=== PATIENT | male | born 1990 | race Caucasian/White ===

== ENCOUNTER 2020-04-25 11:25 | Emergency (ER) | payer OTHER, SELFPAY ==
--- NOTE | 2020-04-25 11:44 | ED.EAR ---
HPI - Ear Problem General Chief complaint: Ear Stated complaint: right ear pain Time Seen by Provider: 04/25/20 11:44 Source: patient and RN notes reviewed Mode of arrival: ambulatory Limitations: no limitations History of Present Illness HPI Narrative: 29-year-old male presents to the [facility] complaints of right ear issues for a couple of months. Patient reports nasty drainage from the right ear. He has not seek treatment before today due to insurance issues. Denies any fevers. No nausea vomiting or diarrhea. No dental issues. Related Data Allergies Allergy/AdvReac Type Severity Reaction Status Date / Time No Known Allergies Allergy Verified 04/25/20 11:44 Review of Systems Review of Systems: Narrative: CONSTITUTIONAL: Denies fever, chills, or sweats. EYES: Denies visual changes, redness, or discharge. ENT: Denies rhinorrhea, congestion, sore throat. Drainage from the right ear along with decreased hearing. CARDIOVASCULAR: Denies chest pain, palpitations, or edema. RESPIRATORY: Denies cough or dyspnea. GASTROINTESTINAL: Denies abdominal pain, nausea, vomiting, or diarrhea. GENITOURINARY: Denies dysuria or hematuria. SKIN: Denies rash or itching. MUSCULOSKELETAL: Denies back pain, joint pain, or myalgia. NEUROLOGIC: Denies headache, numbness, or weakness. PSYCHIATRIC: Denies anxiety or depression. All other systems reviewed are negative, except as documented in HPI. PMFSH Comments At the time of my signature, I reviewed and agree with the nursing past medical, surgical, social, and family history. There is no relevant family history pertinent to the patient complaint. Exam Narrative: Exam Narrative: GENERAL: This is a well-nourished, well-developed patient, in no apparent distress. HEAD: normocephalic, atraumatic. EYES: PERRL. Sclera clear/white. Vision is grossly intact. EARS: External ears normal.right TMs normal without perforation with large amount of cerumen. hearing grossly intact. Left TM partially visualized with pus both in front of and behind TM. NOSE: External nose normal with no obvious nasal discharge, nares without redness, no rhinorrhea. THROAT: Mucous membranes moist, posterior pharynx clear. NECK: Neck supple, non-tender without lymphadenopathy, masses or thyromegaly. CARDIOVASCULAR: Regular rate and rhythm without murmurs, gallops, or rubs. RESPIRATORY: Clear to auscultation. Breath sounds equal bilaterally. No wheezes, rales, or rhonchi. SKIN: warm, intact with no suspicious lesions or rash, good texture and turgor. NEURO: awake, alert, and oriented to person, place and time. There were no obvious focal neurologic abnormalities. EXTREMITIES: No joint tenderness, effusion, or edema noted. BACK: Nontender without deformity. No CVA tenderness. Course Vital Signs Vital signs: Vital Signs Temperature 97.0 F L 04/25/20 11:48 Pulse Rate 55 L 04/25/20 11:48 Respiratory Rate 16 04/25/20 11:48 Blood Pressure 143/57 H 04/25/20 11:48 Pulse Oximetry 100 04/25/20 11:48 Temperature 97.0 F L 04/25/20 11:48 Pulse Rate 55 L 04/25/20 11:48 Respiratory Rate 16 04/25/20 11:48 Blood Pressure 143/57 H 04/25/20 11:48 Pulse Oximetry 100 04/25/20 11:48 Reviewed Procedures Ear Wax Removal Left Ear: Ear Wax Removal Date: 04/25/20 Ear Wax Removal Time: 11:55 Results: Re-examined: some cerumen remains TM Examination: TM(s) intact, normal appearance Ear Canal Exam: atraumatic Patient Tolerated Procedure: well Complications: no problems Technique: ear canal curetted Medical Decision Making MDM Narrative Medical decision making narrative: Discharge instructions reviewed with patient, as well as provided in writing per nursing staff. The instructions also include specific and strict return/GO TO THE ER as well as f/u information. All questions have been answered, and the patient deny any further questions with discharge and discharge
[2020-04-25 11:48] VITALS: BP 143/57; PULSE 55; RESP 16; TEMP 36.1; O2SAT 100
--- NOTE | 2020-04-25 12:20 | PC.NURSE ---
Pt called and notified that prescription ear drops were changed by provider because of high co pay. Pt verbalized understanding and agreement.
== END 2020-04-25 12:06 | disposition home or self-care (01) ==
PROVIDERS: Emergency Provider Nurse Practitioner
DX: H60.91 Unspecified otitis externa, right ear (principal); H61.22 Impacted cerumen, left ear
CPT/HCPCS: 69210; 99213; G0463

== ENCOUNTER 2023-05-23 07:50 | Day surgery (SDC) | payer SELFPAY ==
[2023-05-23] VITALS (10 sets, daily range): BP systolic 142–163; BP diastolic 75–91; PULSE 56–105; RESP 10–18; TEMP 36.5–37.1; O2SAT 96–100
--- NOTE | ~2023-05-23 | CT_ITS ---
EXAMINATION: CT abdomen pelvis w con DATE: 05/23/2023 09:01 INDICATION: Right lower quadrant abdominal pain TECHNIQUE: Computed tomography (CT) of the abdomen and pelvis was performed with 100 mL Omnipaque-350 intravenous contrast. Automated exposure control and iterative reconstruction technique were employe d. The dose-length product was 397.43 mGy-cm. COMPARISON: None FINDINGS: Lung bases are clear. Heart size is normal. No pericardial or pleural effusion. Liver, gallbladder, s pleen, pancreas, bilateral adrenal glands and kidneys are normal. Mucosal enhancement and wall thicke hattie of the appendix which is dilated to 1.4 cm. There are a few likely obstructing appendicoliths in the proximal appendix with focal cecal wall thickening at the appendiceal orifice. There is also kei e surrounding periappendiceal inflammatory stranding in the entire constellation of findings consiste nt with acute appendicitis. Small amount of likely reactive free fluid in the deep pelvis. No abscess or free intraperitoneal gas. No bowel obstruction. Bladder is normal. No pathologically enlarged abd ominal or pelvic lymphadenopathy. Mild lumbar levocurvature with mild spondylosis. IMPRESSION: 1. Acute appendicitis. Dr. Strickland discussed these findings with Dr. Parisi at 9:10 AM. Reviewed, dictated and finalized at location A.
--- NOTE | 2023-05-23 08:06 | ED.ABDPAIN ---
HPI - Abdominal Pain General Chief Complaint: Abdominal Pain Stated Complaint: Right Lower ABD Pain Time Seen by Provider: 05/23/23 07:52 History of Present Illness HPI narrative: Patient is a 32-year-old male with no past medical history here today with nausea, vomiting, abdominal pain. He states around 12:00 p.m. yesterday afternoon he began having some periumbilical abdominal pain. The pain is progressed and moved to the right lower quadrant. He notes has been persistent, severe, associated with nausea, vomiting, decreased appetite. He additionally notes some burning with urination and decreased urinary output. He has not taken anything for the pain or nausea at home. Last p.o. intake was around 4:00 a.m. this morning when he tried to eat some strawberries but quickly through them back up. No prior abdominal surgeries. He does note that he had similar symptoms a few weeks ago which self-resolved after 12 hours and he was not seen for the pain at that time. Related Data Home Medications Medication Instructions Recorded Confirmed No Home Medications 05/23/23 05/23/23 Allergies Allergy/AdvReac Type Severity Reaction Status Date / Time No Known Allergies Allergy Verified 05/23/23 08:03 Review of Systems Review of Systems: All systems reviewed & are unremarkable except as noted in HPI and below Exam Narrative: GENERAL: Well-appearing, well-nourished, and in no acute distress. HEAD: Normocephalic, atraumatic. EYES: PERRLA and EOMI. ENT: Nares clear. Mucous membranes moist. NECK: Supple. CHEST: Clear to auscultation. No respiratory distress. HEART: Regular rate and rhythm. Normal peripheral pulses. ABDOMEN: Soft, right lower quadrant tenderness, no guarding, no CVA tenderness, nondistended. EXTREMITIES: Normal range of motion. No edema. SKIN: Warm, dry, no rash. NEURO: No focal deficits. Alert and oriented x3. PSYCH: Normal mood and affect. Course Course Emergency Course: Chart review performed. Patient here with right sided abdominal pain since yesterday with N/V, no diarrhea. Triage vitals show HTN, tachycardia. One prior visit in our system for cerumen impaction in 2020. Patient seen evaluated, nontoxic appearing. Presentation concerning for possible appendicitis, gastritis, gastroenteritis, less likely UTI, nephrolithiasis, pyelonephritis. Patient advised to remain NPO, IV fluids, morphine, Zofran ordered. Basic lab work ordered as well as UA. Will do CT abdomen pelvis to evaluate for appendicitis, obstructing ureteral stone. Patient agreeable. Received call from radiology that patient has acute appendicitis, trace free fluid in the pelvis with no free air or abscess appreciated. WBC of 17.3, remainder of lab work grossly normal. Patient re-evaluated and updated on results. Continues to remain NPO at this time. Confirms no prior abdominal surgeries, no blood thinner use. Continues to have pain. Additional morphine ordered. Zosyn ordered. Surgery paged. Spoke with Dr. Kelley who plans to take patient to OR this morning. Patient and family at bedside updated on all results and plan. All questions and concerns addressed. Vital Signs Vital signs: Vital Signs Temperature 97.7 F 05/23/23 07:52 Pulse Rate 105 H 05/23/23 07:52 Respiratory Rate 18 05/23/23 07:52 Blood Pressure 163/85 H 05/23/23 07:52 Pulse Oximetry 100 05/23/23 07:52 Oxygen Delivery Room Air 05/23/23 07:52 Temperature 97.7 F 05/23/23 07:52 Pulse Rate 105 H 05/23/23 07:52 Respiratory Rate 18 05/23/23 07:52 Blood Pressure 163/85 H 05/23/23 07:52 Pulse Oximetry 100 05/23/23 07:52 Oxygen Delivery Room Air 05/23/23 07:52 MDM - Abdominal Pain Lab Data 05/23/23 08:08 05/23/23 08:08 Labs: Lab Results 05/23/23 Range/Units 08:08 WBC 17.3 H (4.5-10.0) K/mm3 RBC 5.37 (4.6-6.20) M/mm3 Hgb 16.1 (14.0-18.0) g/dL Hct 48.2 (42.0-52.0) % MCV 89.8 (
[2023-05-23 08:16] LABS: Basophils Absolute Auto 0.1 K/mm3 (0.0-0.1); Basophils Percent Auto 0.5 % (0.2-1.2); Hematocrit 48.2 % (42.0-52.0); Hemoglobin 16.1 g/dL (14.0-18.0); Immature Granulocyte Absolute 0.12 K/mm3 (0.00-0.031); Immature Granulocyte Percent A 0.7 % (0-0.5); Lymphocytes Absolute Auto 1.76 K/mm3 (0.9-3.2); Lymphocytes Percent Auto 10.2 % (18.3-44.2); Mean Corpuscular HGB Conc 33.4 g/dl (32-36); Mean Corpuscular Volume 89.8 fl (80-100); Mean Platelet Volume 9.2 fl (7.4-10.4); Monocytes Percent Auto 5.8 % (2.6-8.5); Neutrophils Absolute Auto 14.3 K/mm3 (1.3-6.7); Neutrophils Percent Auto 82.8 % (45.5-73.1); Platelet Count Result 352 k/mm3 (150-375); Red Blood Count 5.37 M/mm3 (4.6-6.20); Red Cell Distribution Width 11.7 % (11.5-14.5); White Blood Count 17.3 K/mm3 (4.5-10.0)
[2023-05-23] MEDS: LACTATED RINGERS 1,000 ML 999 ML IV CONT (08:30)
[2023-05-23 08:31] LABS: Alanine Aminotransferase 31 U/L (6-50); Albumin Level 5.3 g/dL (3.5-5.1); Alkaline Phosphatase 103 U/L (38-126); Anion Gap 14 mmol/L (4-12); Aspartate Amino Transferase 29 U/L (17-59); Bilirubin,Total 1.4 mg/dL (0.2-1.3); Blood Urea Nitrogen 14 mg/dL (9-20); Carbon Dioxide 23 mmol/L (22-30); Chloride 101 mmol/L (98-107); Estimated CRCL calculation 105 ml/min; Estimated Glomerular Filt Rate > 60; Glucose 113 mg/dL (65-110); Lipase 194 U/L (23-300); Sodium 138 mmol/L (137-145)
[2023-05-23] MEDS: ONDANSETRON INJ 4 MG/2 ML VIAL IV PUSH ×2 (08:31→12:53)
[2023-05-23] MEDS: MORPHINE SULFATE (*CRX) 4 MG/ML INJ IV PUSH ×2 (08:31→09:30)
[2023-05-23 08:53] LABS: Appearance Urine Clear (Clear); Bacteria Urine None Seen /hpf; Bilirubin Urine Negative (Negative); Blood Urine Negative (Negative); Color Urine Dark Yellow (Yellow); Glucose Urine UA Negative (Negative); Ketones Urine 4+ mg/dL (Negative); Leukocyte Esterase Ur Negative LEU/UL (Negative); Mucus Urine Present /lpf; Nitrate Urine Negative (Negative); Protein Urine 1+ mg/dL (Negative); RBC Urine 0-2 /hpf (0-2); Squamous Epithelial Cell Urine None Seen /hpf (Few); WBC Urine 0-5 /hpf (0-3); pH Urine 5.5 (5.0-9.0)
[2023-05-23 08:54] LABS: Add Urine Microscopic? YES; Specific Grav Ur 1.034 (1.001-1.035)
[2023-05-23] MEDS: PIPERACILLIN/TAZ 4.5G/NS 100ML 4.5 GM/100 ML BAG IVPB (09:40)
[2023-05-23 09:41] LABS: INR 1.2; Prothrombin Time 15.2 Seconds (11.1-14.7)
[2023-05-23 09:42] LABS: Partial Thromboplastin Time 34.6 Seconds (22.3-36.8)
[2023-05-23 09:49] LABS: CRP 0.7 mg/dL (<1.0)
--- NOTE | 2023-05-23 10:13 | PM.IMHP ---
H&P: HPI History of Present Illness Date/Time: 05/23/23 10:13 Chief Complaint: Acute appendicitis Narrative: The patient is a 32-year-old male presenting to the emergency department complaining of a one-day history of right lower quadrant abdominal pain. The patient reports the pain initially started in the periumbilical area and has now localized to the right lower quadrant. The patient reports associated nausea and vomiting, decreased appetite. The patient denies previous episodes. Workup in the emergency department, including CT scan, is significant for acute uncomplicated appendicitis. Review of Systems Review of Systems: All systems reviewed & are unremarkable except as noted in HPI and below Meds Home Medications and Allergies Home Medications Medication Instructions Recorded Confirmed Type No Home Medications 05/23/23 05/23/23 History Allergies Allergy/AdvReac Type Severity Reaction Status Date / Time No Known Allergies Allergy Verified 05/23/23 08:03 Vital Signs Vital Signs - 24 hr 05/23/23 07:52 05/23/23 09:39 Temperature 36.5 C Pulse Rate 105 H 90 Respiratory Rate 18 18 Blood Pressure 163/85 H 148/88 H Pulse Oximetry 100 98 Oxygen Delivery Room Air Exam Const: General: cooperative, in distress mild and uncomfortable HENMT: Head: normal to inspection, normocephalic and atraumatic Eyes: General: appearance normal, both eyes and all related structures Neck: Neck: normal visual inspection, full ROM and no lymphadenopathy Resp: Auscultation: clear to auscultation bilaterally Cardio: Rate: regular rate Rhythm: regular rhythm GI: Inspection: normal to inspection and distended GI Palp: Yes abdominal tenderness, Yes Soft to palpation, Yes Tenderness to palpation present (GI), Yes Guarding due to palpation present (GI) and No Rigid due to palpation Skin: General skin exam: normal color and no rashes or lesions noted Neuro: General: patient oriented x3 and CN's II-XI intact bilaterally Extrem: General: normal to inspection and full ROM H&P: Results Labs Labs: Short CBC 05/23/23 Range/Units 08:08 WBC 17.3 H (4.5-10.0) K/mm3 Hgb 16.1 (14.0-18.0) g/dL Hct 48.2 (42.0-52.0) % Plt Count 352 (150-375) k/mm3 [facility] 05/23/23 08:08 Sodium 138 Potassium 4.0 Chloride 101 Carbon Dioxide 23 BUN 14 Creatinine 1.00 Glucose 113 H Calcium 10.0 Liver Function 05/23/23 Range/Units 08:08 Total Bilirubin 1.4 H (0.2-1.3) mg/dL AST 29 (17-59) U/L ALT 31 (6-50) U/L Alkaline Phosphatase 103 (38-126) U/L Albumin 5.3 H (3.5-5.1) g/dL Urine 05/23/23 Range/Units 08:08 Urine Color Dark yellow (Yellow) Urine Appearance Clear (Clear) Urine pH 5.5 (5.0-9.0) Ur Specific [place] 1.034 (1.001-1.035) Urine Protein 1+ H (Negative) mg/dL Urine Glucose (UA) Negative (Negative) mg/dL Assessment and Plan Assessment and plan (1) Acute appendicitis: Qualifiers: Acute appendicitis type: with localized peritonitis Appendicitis abscess presence: without abscess Appendicitis gangrene presence: without gangrene Appendicitis perforation presence: without perforation Qualified Code(s): K35.30 - Acute appendicitis with localized peritonitis, without perforation or gangrene Code(s): K35.80 - Unspecified acute appendicitis Status: Acute Assessment and Plan: Exam and workup consistent with acute appendicitis, OR for emergent appendectomy, NPO, IV antibiotics
--- NOTE | 2023-05-23 10:16 | WPDHPUPDATE1 ---
History and Physical Update Update Date/Time: 05/23/23 10:16 History and Physical has been reviewed, including an updated exam of the patient. There are NO changes in the patient's condition. Risks, benefits, and alternatives have been discussed and questions answered. Patient agrees to proceed with procedure.
--- NOTE | 2023-05-23 10:29 | WPDANESEPPF ---
Anes - Initial Pre Proc Eval Procedure: Operation Date: 05/23/23 10:40 Proposed Procedures p Laparoscopic Appendectomy - Yue Kelley MD Date/Time: 05/23/23 10:29 Pre Op Diagnosis: Right Lower ABD Pain Patient Data Age: 32 Gender: M Height: 1.83 m Weight: 88 kg Last Vital Signs Temp 36.5 C 05/23/23 07:52 Pulse 90 05/23/23 09:39 Resp 18 05/23/23 09:39 BP 148/88 H 05/23/23 09:39 Pulse Ox 98 05/23/23 09:39 O2 Del Method Room Air 05/23/23 07:52 Allergies Allergy/AdvReac Type Severity Reaction Status Date / Time No Known Allergies Allergy Verified 05/23/23 08:03 Home Medications Medication Instructions Recorded Confirmed Type No Home Medications 05/23/23 05/23/23 History Laboratory Tests 05/23/23 05/23/23 05/23/23 08:08 09:10 09:34 WBC 17.3 H K/mm3 (4.5-10.0) RBC 5.37 M/mm3 (4.6-6.20) Hgb 16.1 g/dL (14.0-18.0) Hct 48.2 % (42.0-52.0) MCV 89.8 fl (80-100) MCH 30.0 pg (26-34) MCHC 33.4 g/dl (32-36) RDW 11.7 % (11.5-14.5) Plt Count 352 k/mm3 (150-375) MPV 9.2 fl (7.4-10.4) Immature Gran % (Auto) 0.7 H % (0-0.5) Neut % (Auto) 82.8 H % (45.5-73.1) Lymph % (Auto) 10.2 L % (18.3-44.2) [place] % (Auto) 5.8 % (2.6-8.5) Eos % (Auto) 0.0 % (0-4.4) Baso % (Auto) 0.5 % (0.2-1.2) Lymph # (Auto) 1.76 K/mm3 (0.9-3.2) [place] # (Auto) 1.0 H K/mm3 (0.1-0.6) Eos # (Auto) 0.0 K/mm3 (0-0.3) Baso # (Auto) 0.1 K/mm3 (0.0-0.1) Abs Immat Gran (auto) 0.12 H K/mm3 (0.00-0.031) Absolute Neuts (auto) 14.3 H K/mm3 (1.3-6.7) Absolute Nucleated RBC 0.000 K/mm3 (0.0-0.012) Nucleated RBC % 0.0 % (0.0-0.2) PT 15.2 H Seconds (11.1-14.7) INR 1.2 APTT 34.6 Seconds (22.3-36.8) Sodium 138 mmol/L (137-145) Potassium 4.0 mmol/L (3.4-5.0) Chloride 101 mmol/L (98-107) Carbon Dioxide 23 mmol/L (22-30) Anion Gap 14 H mmol/L (4-12) BUN 14 mg/dL (9-20) Creatinine 1.00 mg/dL (0.7-1.3) Estim Creat Clear Calc 105 ml/min Estimated GFR > 60 (59 - ) Glucose 113 H mg/dL (65-110) Calcium 10.0 mg/dL (8.4-10.2) Total Bilirubin 1.4 H mg/dL (0.2-1.3) AST 29 U/L (17-59) ALT 31 U/L (6-50) Alkaline Phosphatase 103 U/L (38-126) C-Reactive Protein 0.7 mg/dL (<1.0) Total Protein 9.0 H g/dL (6.3-8.2) Albumin 5.3 H g/dL (3.5-5.1) Lipase 194 U/L (23-300) Urine Color Dark yellow (Yellow) Urine Appearance Clear (Clear) Urine pH 5.5 (5.0-9.0) Ur Specific [place] 1.034 (1.001-1.035) Urine Protein 1+ H mg/dL (Negative) Urine Glucose (UA) Negative mg/dL (Negative) Urine Ketones 4+ H mg/dL (Negative) Ur Blood (Man) Negative (Negative) Urine Nitrate Negative (Negative) Urine Bilirubin Negative (Negative) Urine Urobilinogen 1.0 mg/dL (<2.0) Leukocyte Esterase Rfl Negative KOJO/UL (Negative) Urine RBC 0-2 /hpf (0-2) Urine WBC 0-5 /hpf (0-3) Ur Squamous Epith Cells None seen /hpf (Few) Urine Bacteria None seen /hpf Urine Casts 6-10 Urine Mucus Present /lpf Blood Type O Positive Antibody Screen Pending Patient hx anesthesia problems: none Family hx anesthesia problems: none Results Review: All pre-operative results and documents have been reviewed as part of the pre-operative evaluation. [facility] Surgical History Surgical History (Updated 05/23/23 @ 10:29 by Carlos Lopez
--- NOTE | 2023-05-23 11:19 | W.PM.PROC2 ---
Procedure Note - Detailed Date of Procedure 05/23/23 Pre-op Diagnosis acute appendicitis Post-op Diagnosis Same Procedure Performed laparoscopic appendectomy Surgeon Yue Kelley MD Anesthesia General Indications 32-year-old male presenting to the emergency department with acute appendicitis Findings acute appendicitis no evidence of perforation Description of Procedure The patient was taken to the operating room and placed in the supine position. After adequate induction of general anesthesia, the patient was prepped and draped in the normal sterile fashion. A time-out was then done to verify the patient's identity, as well as the procedure being performed. I began by making a 5 mm incision in the infraumbilical region, through this a Veress needle was placed in the peritoneal cavity. CO2 gas was then insufflated and after adequate pneumoperitoneum was achieved the Veress needle was removed. Then placed a 5 mm Optiview trocar under direct visualization into the peritoneal cavity. I then insufflated through this trocar site and the endoscope was placed into the trocar. Under direct visualization, I placed a further 5 mm suprapubic port as well as an additional 12 mm port in the left lower abdomen. At this point identified the cecum, I retracted the cecum both medially and superiorly allowing me to expose the appendix. The appendix was noted to be very dilated and inflamed. The appendix was noted to be very adherent to the right lateral sidewall as well as the ileum. I was able to bluntly dissect the appendix from these adhesions. I then was able to locate the base of the appendix with the cecum. I created a window with the [place] dissector between the appendix itself and the mesoappendix. I then transected the mesoappendix with a white vascular staple load. The Endo-MACIEL was then reloaded with a blue staple load and I transected the base of the appendix. Once the specimen was completely detached, an endo-pouch was placed into the 12 mm port site and the specimen was removed through the endo-pouch. The appendiceal specimen will be sent to pathology for further review. I then copiously irrigated the right lower quadrant. Hemostasis was noted at both staple lines no other pathology was seen in this area. I then moved the camera to the suprapubic port to check our its port of entry. No iatrogenic injury or other pathology was noted in the upper abdomen. I then closed the 12 mm port site with a Shan code and 0 Vicryl suture under direct visualization. At this point, the abdomen was desufflated and all ports were removed. All port sites were closed with 4 Monocryl subcuticular suture. Dermabond was placed on all wounds. The patient tolerated the procedure well and was extubated in the operating room postop. He will be sent to the recovery room in stable condition. Estimated Blood Loss 10 Drains No Packing No Pathology Yes Complications No immediate complications Condition Stable Disposition PACU [facility] Billing Surgery - Charge Forward: Surgery Billing
[2023-05-23] MEDS: BUPIVACAINE/EPINEPHRINE 0.5% 10 ML VIAL 30 ML INFILTRATE (11:22)
[2023-05-23] MEDS: LACTATED RINGERS 1,000 ML 30 ML IV CONT (11:25)
[2023-05-23] MEDS: oxyCODONE HCL (*CRX) 5 MG TAB IR PO (13:01)
== END 2023-05-23 13:30 | disposition home or self-care (01) ==
LOC: ANHED 09:23 → ANHSURGERY 13:03
PROVIDERS: Emergency Provider Student in an Organized Health Care Education/Training Program; Visit Provider Surgery
PROC: 0DTJ4ZZ Resection of Appendix, Percutaneous Endoscopic Approach (ICD-10-PCS; CPT 44970; principal; 2023-05-23 10:40)
DX: K35.32 Acute appendicitis with perforation, localized peritonitis, and gangrene, without abscess (principal); F17.290 Nicotine dependence, other tobacco product, uncomplicated
CPT/HCPCS: 44970; 36415; 74177; 80053; 81001; 83690; 85025; 85610; 85730; 86140; 86850; 86900; 86901; 88304; A9270; J1170; J2250; J2270; J2405; J2543; J2704; J3010; J7030; J7120; Q9967